=== PATIENT | female | born 1950 | race Two or more races ===

== ENCOUNTER 2017-06-04 09:20 | Emergency (ER) | payer OTHER ==
[~2017-06-04] VITALS: Ht 162.6 cm; Wt 707.6 kg
[~2017-06-04 09:20] MED LIST: ATENOLOL25 MG; LEVAQUIN500 MG PO; TUSSI PRES-B L120 M1 PO; VASOTEC5 MG
== END 2017-06-04 12:37 | disposition home or self-care (01) ==
LOC: ER 09:20
DX: M54.5 Low back pain (principal); M25.562 Pain in left knee; M54.2 Cervicalgia; G89.11 Acute pain due to trauma

== ENCOUNTER 2018-09-27 10:42 | Emergency (ER) | payer OTHER ==
[~2018-09-27] VITALS: Ht 162.6 cm; Wt 81.6 kg
[2018-09-27] MEDS ORDERED: VASOTEC20 MG (11:58)
[2018-09-27] MEDS ORDERED: SKELAGESIC (11:59)
[2018-09-27] MEDS ORDERED: NEURONTIN800 MG (11:59)
[2018-09-27] MEDS ORDERED: REMERON45 M1 (12:00)
== END 2018-09-27 14:49 | disposition home or self-care (01) ==
LOC: ER 10:42
DX: M25.562 Pain in left knee (principal); M25.561 Pain in right knee

== ENCOUNTER → 2018-10-25 | Outpatient (CLI) | payer OTHER ==
[~2018-10-25] MED LIST changes: +NEURONTIN800 MG; +REMERON45 M1; +SKELAGESIC; +VASOTEC20 MG
== END | disposition home or self-care (01) ==
LOC: RAD 14:24 → MRI 10-26 09:15
DX: R07.89 Other chest pain (principal); M25.561 Pain in right knee; M25.562 Pain in left knee

== ENCOUNTER → 2018-11-15 14:42 | Outpatient (CLI) | payer OTHER | END | disposition home or self-care (01) | LOC: LAB 14:42 | DX: M06.09 Rheumatoid arthritis without rheumatoid factor, multiple sites (principal); K75.3 Granulomatous hepatitis, not elsewhere classified ==

== ENCOUNTER 2018-11-23 09:40 | Outpatient (CLI) | payer OTHER | END 2018-11-23 09:43 | disposition home or self-care (01) | LOC: NUCLEAR 09:40 | DX: M06.4 Inflammatory polyarthropathy (principal) | CPT/HCPCS: 78315; A9503 ==

== ENCOUNTER 2019-12-29 12:31 | Outpatient (CLI) | payer OTHER | END 2019-12-29 12:43 | disposition home or self-care (01) | LOC: RAD 12:31 → EDBD 12:31 → RAD 12:43 | PROVIDERS: ATTEND Internal Medicine Rheumatology | DX: I10 Essential (primary) hypertension (principal) ==

== ENCOUNTER → 2019-12-29 12:59 | Outpatient (CLI) | payer OTHER | END | disposition home or self-care (01) | LOC: LAB 12:59 | PROVIDERS: ATTEND Internal Medicine Rheumatology | DX: Z11.59 Encounter for screening for other viral diseases (principal); M06.09 Rheumatoid arthritis without rheumatoid factor, multiple sites ==

== ENCOUNTER 2020-01-04 11:09 | Outpatient (CLI) | payer OTHER | END 2020-01-04 15:40 | disposition home or self-care (01) | LOC: LAB 11:09 | PROVIDERS: ATTEND Internal Medicine Rheumatology | DX: M06.09 Rheumatoid arthritis without rheumatoid factor, multiple sites (principal); Z11.59 Encounter for screening for other viral diseases ==